=== PATIENT | female | born 1940 | race Caucasian/White ===

== ENCOUNTER → 2017-02-04 | Day surgery (SDC) | payer MEDICARE, OTHER ==
[~2017-02-04] MED LIST: ACID CONTROLLER20 MG PO; ARICEPT10 MG PO; ASPIR 8181 MG PO; ATIVAN0.5 MG PO; CLARITIN 10MG T10 MG PO; LANTUS100 UNIT/1 SQ; LISINOPRIL30 MG PO; LOPERAMIDE2 MG PO; MULTIVITAMINS1 EAC2 PO; NEURONTIN 100100 MG PO; NORCO 7.5-3251 EACH PO; NORVASC 5 MG TAB5 MG PO; NOVOLIN 70100 UNIT/1 SQ; NOVOLIN R100 UNIT/1 INJ; OMEPRAZOLE20 M1 PO; PANTOPRAZOLE SO40 MG PO; PULMICORT0.5 MG/21 INH; SYNTHROID150 MCG PO; ZOFRAN ODT 4 MG4 MG PO
== END | disposition home or self-care (01) ==
LOC: OR 07:41
PROVIDERS: Internal Medicine Gastroenterology
PROC: 0DB68ZX Excision of Stomach, Via Natural or Artificial Opening Endoscopic, Diagnostic (ICD-10-PCS; principal; 2017-02-04 11:30)
DX: K29.50 Unspecified chronic gastritis without bleeding (principal); K44.9 Diaphragmatic hernia without obstruction or gangrene; E75.5 Other lipid storage disorders; Z88.1 Allergy status to other antibiotic agents; Z88.8 Allergy status to other drugs, medicaments and biological substances; E11.9 Type 2 diabetes mellitus without complications; E78.5 Hyperlipidemia, unspecified; I10 Essential (primary) hypertension; Z79.4 Long term (current) use of insulin; Z79.82 Long term (current) use of aspirin; Z79.899 Other long term (current) drug therapy
CPT/HCPCS: 82962; J2250; J3010; J7030